=== PATIENT | female | born 1965 | race Caucasian/White ===

== ENCOUNTER 2017-07-08 19:33 | Emergency (ER) | payer BC ==
[~2017-07-08] VITALS: Ht 152.4 cm; Wt 65.0 kg
[~2017-07-08 19:33] MED LIST: GLIM4TAB; MTF1000T
[2017-07-08 20:03] VITALS: Ht 152.4 cm; Wt 65.0 kg
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
== END 2017-07-08 23:43 | disposition left against medical advice (07) ==
LOC: FTE 19:33
DX: F41.9 Anxiety disorder, unspecified (principal); I10 Essential (primary) hypertension; E11.9 Type 2 diabetes mellitus without complications; Z79.84 Long term (current) use of oral hypoglycemic drugs
CPT/HCPCS: 93005; Z7502

== ENCOUNTER 2017-12-14 21:57 | Emergency (ER) | END 2017-12-15 02:31 | disposition home or self-care (01) ==

== ENCOUNTER 2018-04-09 16:22 | Emergency (ER) | END 2018-04-09 18:56 | disposition home or self-care (01) ==

== ENCOUNTER 2018-05-06 08:34 | Emergency (ER) | END 2018-05-06 12:31 | disposition home or self-care (01) ==

== ENCOUNTER 2018-10-08 23:17 | Emergency (ER) | payer SELFPAY ==
[~2018-10-08] VITALS: Ht 165.1 cm; Wt 64.5 kg
[~2018-10-08 23:17] MED LIST changes: +API SQ; +CHOL500010 PO; -GLIM4TAB; +LANT3I SC; -MTF1000T
[2018-10-08 23:26] VITALS: BP 116/64; PULSE 83; RESP 18; Ht 165.1 cm; Wt 64.5 kg
== END 2018-10-09 03:14 | disposition left against medical advice (07) ==
LOC: E/R 23:17
DX: Z53.21 Procedure and treatment not carried out due to patient leaving prior to being seen by health care provider (principal)
CPT/HCPCS: 82962

== ENCOUNTER 2018-12-12 11:33 | Emergency (ER) | payer BC ==
[~2018-12-12] VITALS: Ht 165.1 cm; Wt 63.3 kg
[2018-12-12 11:39] VITALS: BP 124/66; PULSE 85; RESP 18; Ht 165.1 cm; Wt 63.3 kg
[2018-12-12] MEDS ORDERED: LORAZEPAM 0.5 MG TAB PO ONE (12:30)
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
[2018-12-12] MEDS ORDERED: IBUP800T48 PO (14:12)
[2018-12-12] MEDS ORDERED: METH500T PO (14:12)
== END 2018-12-12 14:32 | disposition home or self-care (01) ==
LOC: E/R 11:33
DX: S16.1XXA Strain of muscle, fascia and tendon at neck level, initial encounter (principal); E11.9 Type 2 diabetes mellitus without complications; R07.9 Chest pain, unspecified; R51 Headache; Y04.0XXA Assault by unarmed brawl or fight, initial encounter; Z79.4 Long term (current) use of insulin
CPT/HCPCS: 36415; 70450; 71045; 72125; 84484; 93005; Z7502; Z7610

== ENCOUNTER 2019-01-15 10:50 | Observation (INO) | payer BC ==
[~2019-01-15] VITALS: Ht 165.1 cm; Wt 68.1 kg
[~2019-01-15 10:50] MED LIST changes: +IBUP800T48 PO; +METH500T PO
[2019-01-15] MEDS ORDERED: LORAZEPAM 0.5 MG TAB PO ONE (11:30)
[2019-01-15] MEDS ORDERED: METF500T24 PO (12:32)
[2019-01-15] MEDS ORDERED: ASPI81TA52 PO (12:32)
[2019-01-15] MEDS ORDERED: LATA2.5D2 BOTH EYES (12:32)
[2019-01-15] MEDS ORDERED: LANT3I SC (12:33)
[2019-01-15] MEDS ORDERED: ALPR0.5T6 PO (12:33)
[2019-01-15] MEDS ORDERED: GABA300C16 PO (12:33)
--- NOTE | 2019-01-15 12:35 | ERD ---
ER Documentation Chief Complaint Chief Complaint pt is bib self with c/o chest pain/dizziness since yesterday HPI 53-year-old female comes to the emergency department complaining of chest pain. Patient states over the last 24 hours or so she had a nonspecific central chest discomfort associated with tingling in both upper extremities. She reports feeling lightheaded and slightly dizzy. Symptoms have lasted over the course of the night and continued into this morning. The pain does not significantly radiate. There is no associated fevers or chills, hemoptysis or sputum production. She currently reports the pain is mild to moderate ROS All systems reviewed and are negative except as per history of present illness. Medications Home Meds Reported Medications Aspirin (Low Dose Aspirin) 81 Mg Tablet.dr, 81 MG PO DAILY, #30 TAB 01/15/19 Metformin Hcl* (Metformin Hcl*) 500 Mg Tablet, 500 MG PO WITH BREAKFAST DINNE, #60 TAB 01/15/19 Discontinued Reported Medications Cholecalciferol (Vitamin D3) 5,000 Unit Tablet, 5000 UNIT PO DAILY, TAB 05/06/18 Insulin Glulisine (Apidra) 100 Units/Ml Soln, 5 UNITS SQ WITH MEALS, #1 VIAL 05/06/18 Insulin Glargine* (Lantus*) 100 Unit/Ml Soln, 25 UNIT SC QPM, #1 VIAL 05/06/18 Discontinued Scripts Methocarbamol* (Robaxin*) 500 Mg Tab, 500 MG PO Q8, #20 TAB Prov:LEKKOS,APOSTOLOS A. DO 12/12/18 Ibuprofen* (Motrin*) 800 Mg Tab, 800 MG PO Q6H PRN for PAIN AND OR ELEVATED TEMP, #30 TAB Prov:LEKKOS,APOSTOLOS A. DO 12/12/18 Allergies Allergies: Coded Allergies: No Known Drug Allergies (Verified Allergy, Mild, 01/15/19) PMhx/Soc History of Surgery: No Anesthesia Reaction: No Hx Neurological Disorder: No Hx Respiratory Disorders: No Hx Cardiac Disorders: No Hx Psychiatric Problems: No Hx Miscellaneous Medical Probl: Yes (DM 2 ) Hx Alcohol Use: No Hx Substance Use: No Hx Tobacco Use: No Smoking Status: Never smoker FmHx Noncontributory for chief complaint Physical Exam Vitals Vital Signs Date Temp Pulse Resp B/P (MAP) Pulse Ox O2 O2 Flow FiO2 Time Delivery Rate 5/24/19 98.4 91 20 126/75 99 Room Air 11:46 (92) 01/15/19 Nasal 11:13 Cannula 01/15/19 98.4 92 16 116/71 98 10:53 (86) Physical Exam GENERAL: The patient is well developed and appropriate for usual state of health in no apparent distress HEENT: Pupils equal, round, and reactive to light. EOMI. There is no scleral icterus. NECK: C-spine is soft and supple, there is no meningismus. There is no cervical lymphadenopathy. LUNGS: Clear to auscultation bilaterally. There are no rales, wheezes or rhonchi. HEART: Regular rate and rhythm, no murmurs, clicks, rubs or gallops. ABDOMEN: Soft, non-tender, non-distended. There are bowel sounds in all four quadrants. No rebound or guarding. EXTREMITIES: There is no peripheral cyanosis or edema. No focal swelling or erythema. NEURO: The patient moves all four extremities with 5/5 strength. Cranial nerves II - XII are intact. Normal gait. Alert and oriented SKIN: There is no apparent rash or petechiae. HEME/LYMPHATIC: There is no evidence of excessive bruising or lymphedema. PSYCHIATRIC: Patient appears slightly anxious Result Diagram: 01/15/19 1120 01/15/19 1120 Results 24 hrs Laboratory Tests Test 01/15/19 11:20 White Blood Count 6.6 10^3/ul Red Blood Count 4.47 10^6/ul Hemoglobin 13.5 g/dl Hematocrit 38.7 % Mean Corpuscular Volume 86.6 fl Mean Corpuscular Hemoglobin 30.2 pg Mean Corpuscular Hemoglobin Concent 34.9 g/dl Red Cell Distribution Width 11.7 % Platelet Count 242 10^3/UL Mean Platelet Volume 11.2 fl Immature Granulocytes % 0.300 % Neutrophils % 60.1 % Lymphocytes % 30.8 % Monocytes % 7.1 % Eosinophils % 1.1 % Basophils % 0.6 % Nucleated Red Blood Cells % 0.0 /100WBC Immature Granulocytes # 0.020 10^3/ul Neutrophils # 4.0 10^3/ul Lymphocytes # 2.0 10^3/ul Monocytes # 0.5 10^3/ul Eosinophils # 0.1 10^3/ul Basophils # 0.0 10^3/ul Nucleated Red Blood Cells # 0.0 10^3/ul Sodium Level 134 mmol/L Potassium Level 4.5 mmol/L Chloride Level 98 mmol/L Carbon Dioxide Level 25 mmol/L Anion Gap 11 Blood Urea Nitrogen 12 mg/dl Creatinine 0.64 mg/dl Est Glomerular Filtrat Rate mL/min > 60 mL/min Glucose Level 398 mg/dl Calcium Level 8.8 mg/dl Troponin I < 0.012 ng/ml Current Medications Medications Dose Sig/Flores Start Time Status Last (Trade) Ordered Route PRN Stop Time Admin Dose Reason Admin Lorazepam 0.5 mg ONCE ONCE 01/15/19 DC 01/15/19 (Ativan) PO 11:30 11:29 01/15/19 11:31 Procedures/MDM Patient was taken to a room, seen and evaluated. Comfort measures were initiated. Diagnostic tests were ordered and reviewed. 3 LEAD RHYTHM STRIP: Normal sinus rhythm without ectopy EK lead EKG reviewed by myself: Normal Sinus Rhythm Normal Harrison and intervals No ST elevation, depression, or T wave inversion Impression: Normal EKG RADIOLOGY: Reviewed with the radiologist CONSULTATION: Hospitalist was notified for admission REEVALUATION: Diagnostic tests were appreciated and discussed with the patient. Decision was made to admit for cardiac observation MEDICAL DECISION MAKIN-year-old female presents with chest pain of uncer tain etiology. Initial evaluation thought that this was likely more anxiety related than cardiac related. However, her EKG shows some mild nonspecific changes and her blood sugar is significantly elevated giving her risk factors for heart disease. Patient will be admitted to the hospital for cardiac observation, serial troponins. Departure Diagnosis: Primary Impression: Chest pain Condition: CHAD Domínguez January 15, 2019 12:35
[2019-01-15] MEDS ORDERED: ONDANSETRON 4 MG INJ IV PRN ×2 (13:30→14:30)
[2019-01-15] MEDS ORDERED: ACETAMINOPHEN 325 MG TAB PO PRN (13:30)
[2019-01-15] MEDS ORDERED: INSULIN REGULAR, HUMAN 100 UNIT/1 ML 3ML VIAL IVP STA (14:14)
[2019-01-15] MEDS ORDERED: ALPRAZOLAM 0.5 MG TAB PO PRN (14:30)
[2019-01-15] MEDS ORDERED: MAGNESIUM HYDROXIDE 30ML CUP PO PRN (14:30)
[2019-01-15] MEDS ORDERED: NITROGLYCERIN (SL) 0.4 MG TAB SL PRN (14:30)
[2019-01-15] MEDS ORDERED: LORAZEPAM 2 MG INJ IV PRN (14:30)
[2019-01-15] MEDS ORDERED: DEXTROSE 50% 50 ML SYRINGE IV PRN ×3 (14:30→15:00)
[2019-01-15] MEDS ORDERED: DOCUSATE SODIUM 100 MG CAP PO PRN (14:30)
[2019-01-15] MEDS ORDERED: NACL 0.9% 3 ML SYG IV SCH (14:30)
[2019-01-15] MEDS ORDERED: morphine 2 MG INJ IV PRN (14:30)
[2019-01-15] MEDS ORDERED: ALBUTEROL/IPRATROPIUM (NEB) 3 ML AMP HHN PRN (14:30)
[2019-01-15] MEDS ORDERED: hydrALAzine 20 MG INJ IV PRN (14:30)
[2019-01-15] MEDS ORDERED: GLUCOSE GEL 15 GRAM TUBE BUCCAL PRN (15:00)
[2019-01-15] MEDS ORDERED: GLUCOSE GEL 15 GRAM TUBE PO PRN ×2 (15:00)
[2019-01-15] MEDS ORDERED: GLUCAGON 1 MG INJ IM PRN (15:00)
[2019-01-15] MEDS ORDERED: INSULIN REGULAR, HUMAN 100 UNIT/1 ML 3ML VIAL SC STA (15:03)
[2019-01-15] MEDS: SOD CHLORIDE 0.45% 1,000 ML IV SCH (15:09)
--- NOTE | 2019-01-15 15:50 | HP ---
DATE OF ADMISSION: 01/15/2019 This is a 53-year-old female. CHIEF COMPLAINT: Chest pain and dizziness. HISTORY OF PRESENT ILLNESS: A 53-year-old female with past medical history of type 2 diabetes who bustillos s been having some chest pain. The symptoms have been going on for the last 1-2 days. She is also d escribed some tingling, both in upper and lower extremities. She has also had some dizziness symptom s and lightheadedness but no loss of consciousness. She became concerned because her symptoms occurr ed overnight and continued until this morning. Denies any upper or lower GI bleeding, no nausea, vom iting, no fevers or chills. She has, however, been complaining of headache and some neck pain as wel l. She does describe some emotional stress that has been going on in her life over the last few days , but does not specify exactly what has been going on. When she came in today, her white blood cell count was normal and her chest x-ray did not show any acute pulmonary disease; however, her sugars we re elevated on the basic metabolic panel, ranging from 398 to 3011. Her troponin is negative x1. PAST MEDICAL HISTORY: As stated above. ALLERGIES: No known drug allergies. MEDICATIONS AT HOME: 1. Alprazolam 0.5 mg q.8h. p.r.n. 2. Aspirin 81 mg daily. 3. Gabapentin 300 mg t.i.d. 4. Latanoprost drops both eyes at bedtime. 5. Lantus 25 units daily at bedtime. 6. Metformin 500 mg b.i.d. PAST SURGICAL HISTORY: She has had appendectomy in the past. FAMILY HISTORY: Mother has diabetes. Brother has heart murmur. Her father apparently had a heart a ttack in his early 50s. SOCIAL HISTORY: Negative for smoking or drinking, or IV drug abuse. PHYSICAL EXAMINATION: VITAL SIGNS: T-max 98.6, pulse 83 to 92, respirations 20, blood pressure is 126/75, satting at 99% o n room air. GENERAL: The patient is lying in bed, answering questions appropriately. Appears slightly lethargic , but no acute distress. HEENT: Pupils equal, round, reactive to light. Extraocular muscles intact. NECK: Supple, no thyromegaly. LUNGS: Clear to auscultation bilaterally. CARDIOVASCULAR: S1, S2 heard. No rubs or gallops. ABDOMEN: Soft, nontender, nondistended. Normal bowel sounds. No rebound or guarding. MUSCULOSKELETAL: No lower extremity edema bilaterally. NEUROLOGIC: No focal deficits. LABORATORIES: Basic metabolic panel is normal except again the sugar was 398. Troponin is negative. Thyroid panel appears to be normal. CBC is normal. That is the extent of the labs that were perfo rmed. ASSESSMENT AND PLAN: A 53-year-old female coming in with lightheaded, headache and dizziness and aura st pressure, signs of elevated blood sugar and positive family history of coronary artery disease. 1. Chest pressure and dizziness. Again, want to rule out the patient for acute coronary syndrome. This could also be musculoskeletal source and she has been having some emotional stress occurring in the last few days. In any event, we will admit her to telemetry, rule out for acute coronary syndrom e, trend her troponins. check 2 more q.6h., put on high dose aspirin, morphine, oxygen, nitro glycerin. 2. Check a 2D echocardiogram as well. Follow up TSH, A1c, lipid panel. 3. For neuropathy, again likely secondary to diabetes, continue her gabapentin. Monitor for now. C onsider PT consult. 4. Diabetes. Again, her sugars were in the high 300 range, but no signs of any DKA on admission. S he has been given regular insulin in the ER, will go ahead and resume her home Lantus, put her on sli ding scale insulin, hold her metformin and check an A1c. 5. Gastrointestinal prophylaxis, PPI. 6. Deep venous thrombosis prophylaxis, heparin subcutaneously. Dictated By: SREEDHAR OMALLEY Conf#: [id number] DID#: [id number]
[2019-01-15] MEDS ORDERED: INSULIN ASPART [NOVOLOG] 3 ML PEN SC SCH (17:00)
[2019-01-15 21:00] VITALS: BP 146/88; PULSE 74; RESP 20; Ht 165.1 cm; Wt 68.1 kg
[2019-01-15] MEDS: INSULIN ASPART [NOVOLOG] 3 ML PEN SC SCH (21:00)
[2019-01-15] MEDS: INSULIN GLARGINE [LANTus] (100 UNITS/ML) SYG SC SCH (21:00)
[2019-01-15 21:02] VITALS: BP 146/88; PULSE 74; RESP 18
[2019-01-15 21:43] VITALS: PULSE 80
[2019-01-15] MEDS: LATANOPROST 0.005% 2.5 ML OPH BOTH EYES SCH (21:45)
[2019-01-15] MEDS: GABAPENTIN 300 MG CAP PO SCH (21:45)
[2019-01-15] MEDS: HEPARIN 5,000 UNIT/1 ML VIAL SC SCH (21:47)
[2019-01-15 23:32] VITALS: BP 125/75; PULSE 87; RESP 18
[2019-01-16] VITALS (11 sets, daily range): BP systolic 98–131; BP diastolic 63–73; PULSE 66–84; RESP 17–20
[2019-01-16] MEDS: HYDROCODONE/APAP (5/325) TAB PO PRN ×2 (01:14→07:41)
[2019-01-16] MEDS: ACCU-CHEK XX SCH (02:00)
[2019-01-16] MEDS ORDERED: INSULIN ASPART [NOVOLOG] 3 ML PEN SC ONE (03:00)
[2019-01-16] MEDS ORDERED: INSULIN GLARGINE [LANTus] (100 UNITS/ML) SYG SC ONE (03:00)
[2019-01-16] MEDS: SOD CHLORIDE 0.45% 1,000 ML IV SCH ×2 (03:39→17:08)
[2019-01-16] MEDS ORDERED: ACCU-CHEK XX ONE (05:00)
[2019-01-16] MEDS: PANTOPRAZOLE (EC) 40 MG TAB PO SCH (05:05)
[2019-01-16] MEDS: INSULIN ASPART [NOVOLOG] 3 ML PEN SC SCH ×6 (07:49→20:06)
[2019-01-16] MEDS ORDERED: INSULIN ASPART [NOVOLOG] 3 ML PEN SC SCH (08:00)
[2019-01-16] MEDS: GABAPENTIN 300 MG CAP PO SCH ×3 (08:38→20:23)
[2019-01-16] MEDS: ASPIRIN (EC) 81 MG TAB PO SCH (08:38)
[2019-01-16] MEDS: HEPARIN 5,000 UNIT/1 ML VIAL SC SCH ×2 (08:46→20:29)
[2019-01-16] MEDS ORDERED: ASPIRIN (EC) 81 MG TAB PO SCH (09:00)
[2019-01-16] MEDS: ACETAMINOPHEN 325 MG TAB PO PRN ×2 (10:50→22:56)
--- NOTE | 2019-01-16 11:46 | PN ---
Date/Time of Note Date/Time of Note DATE: 01/16/19 TIME: 11:42 Assessment/Plan VTE Prophylaxis Risk score (from Ns)>0 risk: 4 SCD applied (from Ns): No SCD contraindicated: other Pharmacological prophylaxis: heparin Lines/Catheters IV C[facility]from [facility] [place] Assessment/Plan Hospital Course S: Worked with physical therapy this morning, still complaining of some dizzin ess symptoms. O: VS- see below PE: PHYSICAL EXAMINATION: GENERAL: lying in bed, answering questions appropriately. Appears slightly lethargic, but no acute distress. HEENT: Pupils equal, round, reactive to light. Extraocular muscles intact. NECK: Supple, no thyromegaly. LUNGS: Clear to auscultation bilaterally. CARDIOVASCULAR: S1, S2 heard. No rubs or gallops. ABDOMEN: Soft, nontender, nondistended. Normal bowel sounds. No rebound or guarding. MUSCULOSKELETAL: No lower extremity edema bilaterally. NEUROLOGIC: No focal deficits. ASSESSMENT AND PLAN: 53-year-old female coming in with lightheaded, headache and dizziness and chest pressure, signs of elevated blood sugar and positive family history of coronary artery disease. 1. Chest pressure and dizziness-has ruled out for acute coronary syndrome. Patient admits she has been having some emotional stress occurring in the last few days. -Continue aspirin and nitroglycerin, morphine as needed -Follow-up results of 2D echocardiogram # High cholesterol: Triglycerides are significantly elevated, likely LDL is although this is a send out lab -Follow-up final results of the cholesterol levels, start Lipitor 40 mg today # Diabetes-patient presented with a sugar of 398, no DKA. A1c is 12.1. Patient claims she is compliant with her Lantus and metformin at home, but there may be doubt about this -Continue moderate insulin sliding scale, short acting insulin which will increase the dose today, Lantus at current dose. # Gastrointestinal prophylaxis, PPI. # Deep venous thrombosis prophylaxis, heparin subcutaneously. Result Diagram: 01/16/19 0453 01/16/19 0453 Results 24hrs Laboratory Tests Test 01/15/19 15:03 01/15/19 16:22 01/15/19 17:25 01/15/19 21:44 Bedside Glucose 301 H 279 H 92 Creatine Kinase 50 Creatine Kinase 0.6 Index Creatinine Kinase MB 0.29 (Mass) Troponin I < 0.012 Test 01/15/19 23:10 01/16/19 02:00 01/16/19 04:53 01/16/19 05:08 Creatine Kinase 51 Creatine Kinase 0.6 Index Creatinine Kinase MB 0.31 (Mass) Troponin I < 0.012 Bedside Glucose 345 H 213 White Blood Count 8.7 # Red Blood Count 4.39 Hemoglobin 13.4 Hematocrit 38.4 Mean Corpuscular 87.5 Volume Mean Corpuscular 30.5 Hemoglobin Mean Corpuscular 34.9 Hemoglobin Concent Red Cell 12.0 Distribution Width Platelet Count 245 Mean Platelet Volume 11.0 H Immature 0.200 Granulocytes % Neutrophils % 54.4 Lymphocytes % 36.1 Monocytes % 8.0 Eosinophils % 1.1 Basophils % 0.2 Nucleated Red Blood 0.0 Cells % Immature 0.020 Granulocytes # Neutrophils # 4.7 Lymphocytes # 3.1 H Monocytes # 0.7 Eosinophils # 0.1 Basophils # 0.0 Nucleated Red Blood 0.0 Cells # Sodium Level 135 Potassium Level 3.9 Chloride Level 101 Carbon Dioxide Level 24 Anion Gap 10 Blood Urea Nitrogen 15 Creatinine 0.53 Est Glomerular > 60 Filtrat Rate mL/min Glucose Level 198 # Calcium Level 8.6 Phosphorus Level 3.8 Magnesium Level 1.7 Triglycerides Level 1048 H Cholesterol Level 227 H LDL Cholesterol, Calculated HDL Cholesterol 26 L Cholesterol/HDL 8.7 Ratio Thyroid Stimulating 5.730 H Hormone (TSH) Test 01/16/19 07:33 Bedside Glucose 191 Exam/Review of Systems Exam Vitals Vital Signs Date Temp Pulse Resp B/P (MAP) Pulse Ox O2 O2 Flow FiO2 Time Delivery Rate 01/16/19 97.6 66 20 109/73 98 11:32 (85) 01/15/19 Room Air 21:00 Intake and Output 01/15/19 01/15/19 01/16/19 1515:00 23:00 07:00 IntakeIntake Total 1725 ml BalanceBalance 1725 ml Results Results 24hrs Laboratory Tests Test 01/15/19 15:03 01/15/19 16:22 01/15/19 17:25 01/15/19 21:44 Bedside Glucose 301 H 279 H 92 Creatine Kinase 50 Creatine Kinase 0.6 Index Creatinine Kinase MB 0.29 (Mass) Troponin I < 0.012 Test 01/15/19 23:10 01/16/19 02:00 01/16/19 04:53 01/16/19 05:08 Creatine Kinase 51 Creatine Kinase 0.6 Index Creatinine Kinase MB 0.31 (Mass) Troponin I < 0.012 Bedside Glucose 345 H 213 White Blood Count 8.7 # Red Blood Count 4.39 Hemoglobin 13.4 Hematocrit 38.4 Mean Corpuscular 87.5 Volume Mean Corpuscular 30.5 Hemoglobin Mean Corpuscular 34.9 Hemoglobin Concent Red Cell 12.0 Distribution Width Platelet Count 245 Mean Platelet Volume 11.0 H Immature 0.200 Granulocytes % Neutrophils % 54.4 Lymphocytes % 36.1 Monocytes % 8.0 Eosinophils % 1.1 Basophils % 0.2 Nucleated Red Blood 0.0 Cells % Immature 0.020 Granulocytes # Neutrophils # 4.7 Lymphocytes # 3.1 H Monocytes # 0.7 Eosinophils # 0.1 Basophils # 0.0 Nucleated Red Blood 0.0 Cells # Sodium Level 135 Potassium Level 3.9 Chloride Level 101 Carbon Dioxide Level 24 Anion Gap 10 Blood Urea Nitrogen 15 Creatinine 0.53 Est Glomerular > 60 Filtrat Rate mL/min Glucose Level 198 # Calcium Level 8.6 Phosphorus Level 3.8 Magnesium Level 1.7 Triglycerides Level 1048 H Cholesterol Level 227 H LDL Cholesterol, Calculated HDL Cholesterol 26 L Cholesterol/HDL 8.7 Ratio Thyroid Stimulating 5.730 H Hormone (TSH) Test 01/16/19 07:33 Bedside Glucose 191 Medications Medication Current Medications Ondansetron HCl (Zofran Inj) 4 mg ER BRIDGE PRN IV NAUSEA/VOMITING; Start 01/15/19 at 13:30; Stop 01/16/19 at 13:29 Acetaminophen (Tylenol Tab) 650 mg ER BRIDGE PRN PO .MILD PAIN 1-3 OR TEMP; Start 01/15/19 at 13:30; Stop 01/16/19 at 13:29 IV Flush (NS 3 ml) 3 ml PER PROTOCOL IV ; Start 01/15/19 at 14:30 Ondansetron HCl (Zofran Inj) 4 mg Q6H PRN IV NAUSEA/VOMITING Last administered on 01/16/19at 08:35; Admin Dose 4 MG; Start 01/15/19 at 14:30 Acetaminophen (Tylenol Tab) 650 mg Q6H PRN PO .PAIN 1-3 OR TEMP Last administered on 01/16/19at 10:50; Admin Dose 650 MG; Start 01/15/19 at 14:30 Acetaminophen/ Hydrocodone Bitart ([place] (5/325)) 1 tab Q6H PRN PO .MOD PAIN 4- 6 Last administered on 01/16/19at 07:41; Admin Dose 1 TAB; Start 01/15/19 at 14:30 Morphine Sulfate (morphine) 2 mg Q4H PRN IV .SEVERE PAIN 7-10; Start 01/15/19 at 14:30 Docusate Sodium (Colace) 100 mg Q12H PRN PO .CONSTIPATION; Start 01/15/19 at 14:30 Magnesium Hydroxide (Milk Of Mag) 30 ml DAILY PRN PO .CONSTIPATION; Start 01/15/19 at 14:30 Pantoprazole (Protonix Tab) 40 mg DAILY@06 PO Last administered on 01/16/19at 05:05; Admin Dose 40 MG; Start 01/16/19 at 06:00 Heparin Sodium (Porcine) (Heparin (5000 Units/1ml)) 5,000 unit Q12 SC Last administered on 01/16/19at 08:46; Admin Dose 5,000 UNIT; Start 01/15/19 at 21:00 Sodium Chloride 1,000 ml @ 75 mls/hr [id number] IV Last administered on 01/16/19at 03:39; Admin Dose 75 MLS/HR; Start 01/15/19 at 14:10 Lorazepam (Ativan) 0.5 mg Q6H PRN IV ANXIETY; Start 01/15/19 at 14:30 Albuterol/ Ipratropium (Duoneb) 3 ml Q4H RESP THERAPY PRN HHN SHORTNESS OF [place] TH; Start 01/15/19 at 14:30 Hydralazine HCl (Apresoline) 10 mg Q6H PRN IV ELEVATED BLOOD PRESSURE; Start 01/15/19 at 14:30 Nitroglycerin (Nitroglycerin (Sl Tab) 0.4 Mg) 1 tab Q5M PRN SL ANGINA; Start 01/15/19 at 14:30 Alprazolam (Xanax) 0.5 mg Q8H PRN PO ANXIETY; Start 01/15/19 at 14:30 Gabapentin (Neurontin) 300 mg TID PO Last administered on 01/16/19at 08:38; Admin Dose 300 MG; Start 01/15/19 at 21:00 Insulin Glargine (Lantus) 25 units QHS SC ; Start 01/15/19 at 21:00 Latanoprost (Xalatan) 1 drop QHS BOTH EYES Last administered on 01/15/19at 21:45; Admin Dose 1 DROP; Start 01/15/19 at 21:00 Miscellaneous Information 1 ea NOTE XX ; Start 01/15/19 at 15:00 Glucose (Glutose) 15 gm Q15M PRN PO DECREASED GLUCOSE; Start 01/15/19 at 15:00 Glucose (Glutose) 22.5 gm Q15M PRN PO DECREASED GLUCOSE; Start 01/15/19 at 15:00 Dextrose (D50w Syringe) 25 ml Q15M PRN IV DECREASED GLUCOSE; Start 01/15/19 at 15:00 Dextrose (D50w Syringe) 50 ml Q15M PRN IV DECREASED GLUCOSE; Start 01/15/19 at 15:00 Glucagon (Glucagen) 1 mg Q15M PRN IM DECREASED GLUCOSE; Start 01/15/19 at 15:00 Glucose (Glutose) 15 gm Q15M PRN BUCCAL DECREASED GLUCOSE; Start 01/15/19 at 15:00 Aspirin (Halfprin) 162 mg DAILY PO Last administered on 01/16/19at 08:38; Admin Dose 162 MG; Start 01/16/19 at 09:00 Diagnostic Test (Pha) (Accu-Chek) 1 ea 02 XX ; Start 01/16/19 at 02:00 Insulin Aspart (Novolog Insulin Pen) 5 unit WITH MEALS SC Last administered on 01/16/19at 07:49; Admin Dose 5 UNIT; Start 01/16/19 at 08:00 Insulin Aspart (Novolog Insulin Pen) NOVOLOG *MODERATE* ALGORITHM WITH MEALS BEDTIME SC Last administered on 01/16/19at 07:49; Admin Dose 4 UNIT; Start 01/15/19 at 21:00 Atorvastatin Calcium (Lipitor) 40 mg DAILY PO ; Start 01/16/19 at 12:00; Status SREEDHAR MARK January 16, 2019 11:46
[2019-01-16] MEDS: ATORVASTATIN 40 MG TAB PO SCH (11:53)
[2019-01-16] MEDS: INSULIN GLARGINE [LANTus] (100 UNITS/ML) SYG SC SCH (20:07)
[2019-01-16] MEDS: LATANOPROST 0.005% 2.5 ML OPH BOTH EYES SCH (21:24)
[2019-01-17] VITALS (8 sets, daily range): BP systolic 104–116; BP diastolic 64–75; PULSE 68–82; RESP 17–20
[2019-01-17] MEDS: ACCU-CHEK XX SCH (02:00)
[2019-01-17] MEDS: PANTOPRAZOLE (EC) 40 MG TAB PO SCH (06:06)
[2019-01-17] MEDS: SOD CHLORIDE 0.45% 1,000 ML IV SCH (06:10)
[2019-01-17] MEDS: INSULIN ASPART [NOVOLOG] 3 ML PEN SC SCH ×4 (08:07→12:00)
[2019-01-17] MEDS: GABAPENTIN 300 MG CAP PO SCH ×2 (08:58→12:47)
[2019-01-17] MEDS: ASPIRIN (EC) 81 MG TAB PO SCH (08:58)
[2019-01-17] MEDS: ATORVASTATIN 40 MG TAB PO SCH (08:58)
[2019-01-17] MEDS: HEPARIN 5,000 UNIT/1 ML VIAL SC SCH (09:05)
--- NOTE | 2019-01-17 10:37 | PDOCDIS ---
Discharge Instructions CONDITION [id number] Patient Condition: [id number] Stable ACTIVITY: [id number] Activity Restrictions: [id number] Slowly Increase Activity Rest between Activity Avoid heavy lifting FOLLOW UP/APPOINTMENTS Follow-up Plan Please take your medications as prescribed, see your doctor in the clinic in the next 1 week. SREEDHAR GILL January 17, 2019 10:37
[2019-01-17] MEDS ORDERED: ATOR40TA68 PO (10:39)
[2019-01-17] MEDS ORDERED: METF850T13 PO (10:39)
[2019-01-17] MEDS ORDERED: LANT3I SC (10:39)
--- NOTE | 2019-01-17 10:42 | DS ---
Date/Time of Note Date/Time of Note DATE: 01/17/19 TIME: 10:40 Discharge Summary Admission/Discharge Info Admit Date/Time January 15, 2019 at 13:21 Discharge Date/Time Discharge Diagnosis # Chest pressure and dizziness-resolving now, has ruled out for acute coronary syndrome. Patient admits she has been having some emotional stress occurring in the last few days. # High cholesterol: Triglycerides are significantly elevated, likely LDL as well is although this is a send out lab -started on Lipitor now # Diabetes-patient presented with a sugar of 398, no DKA. A1c is 12.1. Sugars improved this admission patient claims she is compliant with her Lantus and metformin at home, but there may be doubt about this Patient Condition: Stable Hx of Present Illness 53-year-old female with past medical history of type 2 diabetes who has been having some chest pain. The symptoms have been going on for the last 1-2 days. She is also described some tingling, both in upper and lower extremities. She has also had some dizziness symptoms and lightheadedness but no loss of consciousness. She became concerned because her symptoms occurred overnight and continued until this morning. Denies any upper or lower GI bleeding, no nausea, vomiting, no fevers or chills. She has, however, been complaining of headache and some neck pain as well. She does describe some emotional stress that has been going on in her life over the last few days, but does not specify exactly what has been going on. When she came in today, her white blood cell count was normal and her chest x-ray did not show any acute pulmonary disease; however, her sugars were elevated on the basic metabolic panel, ranging from 398 to 3011. Her troponin is negative x1. Hospital Course Patient was admitted and placed on appropriate insulin regimen. Her A1c was found to be 12.1. She did rule out for acute coronary syndrome as her troponins were negative x3. Echocardiogram was performed and results of that echo was still pending by the time of this discharge summary. Over the course of her hospital stay her chest pain symptoms resolved, her dizziness improved, and her sugars stabilized. She was able to ambulate and tolerated p.o. diet. She was ordered for a simulation educator to help the patient have a better diet at home, and the nurses here also help teach the patient a better diet regimen regarding elevated sugars. She was also seen by physical therapy team, when she gets up from a walker today she will be discharged home today improved condition. See below for full list of discharge medications which includes increasing her Metformin dose for home use. Home Meds Active Scripts Metformin Hcl* (Metformin Hcl*) 850 Mg Tablet, 850 MG PO WITH BREAKFAST DINNE, #60 TAB 4 Refills Prov:RAABEBA,SREEDHAR S. 01/17/19 Atorvastatin* (Atorvastatin*) 40 Mg Tablet, 40 MG PO DAILY, #30 TAB 4 Refills Prov:RAABEBASREEDHAR S. 01/17/19 Insulin Glargine* (Lantus*) 100 Unit/Ml Soln, 25 UNIT SC QHS, #1 VIAL 4 Refills Prov:ABEBASREEDHAR S. 01/17/19 Reported Medications Gabapentin* (Gabapentin*) 300 Mg Capsule, 300 MG PO TID, #90 CAP 01/15/19 Alprazolam* (Alprazolam*) 0.5 Mg Tablet, 0.5 MG PO Q8H PRN for ANXIETY, TAB 01/15/19 Latanoprost (Latanoprost) 2.5 Ml Drops, 1 DROP BOTH EYES QHS, #1 BOTTLE 01/15/19 Aspirin (Low Dose Aspirin) 81 Mg Tablet.dr, 81 MG PO DAILY, #30 TAB 01/15/19 Discontinued Reported Medications Metformin Hcl* (Metformin Hcl*) 500 Mg Tablet, 500 MG PO WITH BREAKFAST DINNE, #60 TAB 01/15/19 Cholecalciferol (Vitamin D3) 5,000 Unit Tablet, 5000 UNIT PO DAILY, TAB 05/06/18 Insulin Glulisine (Apidra) 100 Units/Ml Soln, 5 UNITS SQ WITH MEALS, #1 VIAL 05/06/18 Insulin Glargine* (Lantus*) 100 Unit/Ml Soln, 25 UNIT SC QPM, #1 VIAL 05/06/18 Discontinued Scripts Methocarbamol* (Robaxin*) 500 Mg Tab, 500 MG PO Q8, #20 TAB Prov:KANCHAN RUCKER DO 12/12/18 Ibuprofen* (Motrin*) 800 Mg Tab, 800 MG PO Q6H PRN for PAIN AND OR ELEVATED TEMP, #30 TAB Prov:KANCHAN RUCKER DO 12/12/18 Follow-up Plan Please take your medications as prescribed, see your doctor in the clinic in the next 1 week. Primary Care Provider Not On Staff Doctor Time spent on discharge: > 30 minutes Pending Labs Laboratory Tests Test 01/16/19 11:45 01/16/19 17:10 01/16/19 19:59 01/17/19 03:29 Bedside 161 366 140 248 Glucose mg/dL (70-220) mg/dL (70-220) mg/dL (70-220) mg/dL (70-220) Test 01/17/19 05:23 01/17/19 07:49 White Blood 8.2 Count 10^3/ul (4.8-10 .8) Red Blood 4.26 Count 10^6/ul (4.20-5 .40) Hemoglobin 12.9 g/dl (12.0-16.0 ) Hematocrit 37.2 % (37.0-47.0) Mean 87.3 Corpuscular fl (82.0-101.0) Volume Mean 30.3 Corpuscular pg (29.0-33.0) Hemoglobin Mean 34.7 Corpuscular g/dl (32.0-37.0 Hemoglobin Conc ) ent Red Cell 12.1 Distribution % (11.5-14.5) Width Platelet Count 217 10^3/UL (140-41 5) Mean Platelet 11.2 Volume fl (7.4-10.4) Immature 0.400 Granulocytes % % (0.001-0.429) Neutrophils % 52.5 % (39.0-77.0) Lymphocytes % 37.8 % (15.0-51.0) Monocytes % 7.5 % (0.0-11.0) Eosinophils % 1.6 % (0.0-7.0) Basophils % 0.2 % (0.0-2.0) Nucleated Red 0.0 Blood Cells % /100WBC (0.0-0. 0) Immature 0.030 Granulocytes # 10^3/ul (0.0-0. 031) Neutrophils # 4.3 10^3/ul (1.6-7. 5) Lymphocytes # 3.1 10^3/ul (0.8-2. 9) Monocytes # 0.6 10^3/ul (0.3-0. 9) Eosinophils # 0.1 10^3/ul (0.0-0. 5) Basophils # 0.0 10^3/ul (0.0-0. 1) Nucleated Red 0.0 Blood Cells # 10^3/ul (0.0-0. 0) Sodium Level 135 mmol/L (135-144 ) Potassium 4.3 Level mmol/L (3.5-5.1 ) Chloride Level 101 mmol/L (97-110) Carbon Dioxide 28 Level mmol/L (21-31) Anion Gap 6 (5-13) Blood Urea 10 mg/dl (7-20) Nitrogen Creatinine 0.65 mg/dl (0.44-1.0 0) Est Glomerular > 60 Filtrat mL/min (>60) Rate mL/min Glucose Level 274 mg/dl (70-220) Calcium Level 8.2 mg/dl (8.4-10.2 ) Bedside 263 Glucose mg/dL (70-220) SREEDHAR GILL January 17, 2019 10:42
--- NOTE | 2019-01-17 19:27 | RADRPT ---
Echocardiogram Report Patient Name: REX NULLPatient ID: [id number] : 1965 (53y 1m)Study Date: 01/15/2019 2:23:07 PM Gender: FAccession #: [id number] Tech: SC Location: [facility] Ref.Physician: SREEDHAR GILL Height(Cm): BSA: Weight(Kg): Quality: AdequateOrder Physician: SREEDHAR GILL Account #: Procedures: Echocardiographic Report: Transthoracic echocardiogram with complete 2D, M-Mode, and doppler examination. Indications: Chest Pain. Measurements: 2D/M Mode Doppler Measurement Value Normal Range Measurement Value Normal Range LVIDd 2D 3.9 [ 3.8 - 5.2 ] cm AV Peak Paulie 1.3 [ 100.0 - 170.0 ] cm/sec LVIDs 2D 2.2 [ 2.2 - 3.5 ] cm AV Peak PG 6.0 [ 2.0 - 9.0 ] mmHg LVPWd 2D 0.9 [ 0.6 - 0.9 ] cm LVOT Peak Paulie 0.9 [ 70.0 - 110.0 ] cm/sec IVSd 2D 1.0 [ 0.6 - 0.9 ] cm LVOT Peak PG 3.0 [ 2.0 - 6.0 ] mmHg IVS/LVPW 2D 1.1 ratio MV E Peak Paulie 0.7 [ 60.0 - 130.0 ] cm/sec AoR Diam 2D 2.6 [ 2.3 - 3.1 ] cm MV A Peak Paulie 0.8 [ 100.0 - 120.0 ] cm/sec LA/Ao 2D 1 ratio MV E/A 0.9 [ 0.8 - 1.5 ] ratio LA Dimen 2D 2.7 [ 2.7 - 3.8 ] cm MV Decel Time 232 [ 104 - 258 ] msec Lat E` Paulie 0.1 [ 10.0 - 15.0 ] cm/sec MV E/A 0.9 [ 0.8 - 1.5 ] ratio TR Peak Paulie 1.8 [ 100.0 - 280.0 ] cm/sec TR Peak PG 13.0 mmHg Findings: Left Ventricle: Normal left ventricular systolic function. Normal left ventricular cavity size. Normal left ventricular wall thickness. Ejection fraction is visually estimated at 55 %. Tissue Doppler/Mitral Doppler indices are consistent with impaired relaxation (Stage I diastolic dysfunction). E/E'= 7. Right Ventricle: Normal right ventricular size. Left Atrium: The left atrium is normal in size. Right Atrium: The right atrium is normal in size. Atrial Septum: Normal atrial septum. Mitral Valve: Normal appearance and function of the mitral valve with trace physiologic regurgitation. Aortic Valve: Normal appearance of the aortic valve. No significant aortic stenosis or insufficiency. Tricuspid Valve: Normal appearance and function of the tricuspid valve with trace physiologic regurgitation. The estimated Peak RVSP is 13 mmHg. Pulmonic Valve: Normal pulmonic valve appearance. Pericardium: Normal pericardium with no significant pericardial effusion. Aorta: Normal aortic root. IVC: Normal size and normal respiratory collapse consistent with normal right atrial pressure. Pulmonary Artery: Normal pulmonary artery size. Conclusions: Normal left ventricular systolic function. Normal left ventricular cavity size. Normal left ventricular wall thickness. Ejection fraction is visually estimated at 55 %. Tissue Doppler/Mitral Doppler indices are consistent with impaired relaxation (Stage I diastolic dysfunction). E/E'= 7. Normal appearance and function of the mitral valve with trace physiologic regurgitation. Normal appearance and function of the tricuspid valve with trace physiologic regurgitation. The estimated Peak RVSP is 13 mmHg. Electronically Signed By: Trevon Hunter 2019-01-17 19:26:58 PDT
== END 2019-01-17 14:26 | disposition home or self-care (01) ==
LOC: E/R 10:50 → 6WM 13:21
PROVIDERS: ADMIT Hospitalist; ATTEND Hospitalist
DX: R07.89 Other chest pain (principal); R42 Dizziness and giddiness; E78.00 Pure hypercholesterolemia, unspecified; E11.9 Type 2 diabetes mellitus without complications; Z79.4 Long term (current) use of insulin; Z79.82 Long term (current) use of aspirin
CPT/HCPCS: 36415; 71045; 80048; 80061; 82550; 82553; 82962; 83036; 83735; 84100; 84439; 84443; 84484; 85025; 92610; 93306; 97161; J1644; J1815; J2405; Z7500; Z7502; Z7610; 93005; G0378